=== PATIENT | female | born 1955 | race Caucasian/White ===

== ENCOUNTER 2017-03-31 10:43 | Outpatient (CLI) | payer OTHER ==
[2017-03-31 12:54] LABS: ALBUMIN/GLOBULIN RATIO 1.6 (1.0-2.2); BILIRUBIN,TOTAL 0.4 mg/dL (0.2-1.0); CALCIUM 9.6 mg/dL (8.5-10.3); POTASSIUM 4.4 mmol/L (3.5-5.0); TOTAL PROTEIN 7.1 g/dL (6.7-8.2)
== END 2017-03-31 10:44 | disposition home or self-care (01) ==
LOC: LAB.R 10:43
PROVIDERS: ATTEND Physician Assistant Medical
DX: F31.9 Bipolar disorder, unspecified (principal); Z79.899 Other long term (current) drug therapy
CPT/HCPCS: 80053; 80178

== ENCOUNTER 2018-01-06 11:10 | Outpatient (CLI) | payer OTHER ==
[2018-01-06 10:24] LABS: BASOPHILS % (AUTO) 0.4 %; EOSINOPHILS # (AUTO) 0.2 10^3/uL (0.0-0.7); EOSINOPHILS % (AUTO) 2.4 %; HGB - HEMOGLOBIN 12.7 g/dL (12.0-16.0); LYMPHOCYTES # (AUTO) 1.8 10^3/uL (1.5-3.5); LYMPHOCYTES % (AUTO) 21.4 %; MEAN CORPUSCULAR HEMOGLOBIN 33.5 pg (27.0-31.0); MEAN CORPUSCULAR HGB CONC 34.8 g/dL (32.0-36.0); MEAN CORPUSCULAR VOLUME 96.2 fL (81.0-99.0); MEAN PLATELET VOLUME 7.4 fL (7.9-10.8); MONOCYTES # (AUTO) 0.4 10^3/uL (0.0-1.0); MONOCYTES % (AUTO) 5.2 %; NEUTROPHILS % (AUTO) 70.6 %; PLT - PLATELET COUNT 254 10^3/uL (130-450); RED BLOOD COUNT 3.81 10^6/uL (4.20-5.40); RED CELL DISTRIBUTION WIDTH 12.7 % (12.0-15.0); WHITE BLOOD COUNT 8.6 x10^3/uL (4.8-10.8)
[2018-01-06 10:48] LABS: ALBUMIN 4.4 g/dL (3.2-5.5); ALBUMIN/GLOBULIN RATIO 1.8 (1.0-2.2); ALKALINE PHOSPHATASE 70 IU/L (42-121); ALT ALANINE AMINOTRANSFERASE 22 IU/L (10-60); AST ASPARTATE AMINOTRANSFERASE 25 IU/L (10-42); BILIRUBIN,TOTAL 0.5 mg/dL (0.2-1.0); BUN - BLOOD UREA NITROGEN 15 mg/dL (6-20); CALCIUM 10.2 mg/dL (8.5-10.3); CARBON DIOXIDE - CO2 25 mmol/L (21-32); CHLORIDE 104 mmol/L (101-111); CHOL/HDL RATIO 5.2 (<4.4); CHOLESTEROL 206 mg/dL; GFR - MDRD 56 (>89); GLUCOSE 118 mg/dL (70-100); HDL CHOLESTEROL 40 mg/dL; LDL CHOLESTEROL,CALCULATED 132 mg/dL; LDL/HDL RATIO 3.3 (<4.4); SODIUM 138 mmol/L (135-145); TOTAL PROTEIN 6.8 g/dL (6.7-8.2); VLDL CHOLESTEROL 34 mg/dL
[2018-01-06 10:49] LABS: HB2 TOTAL 13.4 g/dL; HEMOGLOBIN A1C 0.44 g/dL; HEMOGLOBIN A1C % 5.2 % (4.6-6.2)
[2018-01-06 11:16] LABS: LITHIUM 0.57 mmol/L
[2018-01-07 09:27] LABS: HEPATITIS C ANTIBODY NON-REACTIVE (NON-REACTIVE)
== END 2018-01-06 11:11 | disposition home or self-care (01) ==
LOC: LAB.R 11:10
PROVIDERS: ATTEND Physician Assistant Medical
DX: E11.9 Type 2 diabetes mellitus without complications (principal); I10 Essential (primary) hypertension; F31.9 Bipolar disorder, unspecified; E03.9 Hypothyroidism, unspecified; Z11.59 Encounter for screening for other viral diseases; Z72.89 Other problems related to lifestyle; Z79.899 Other long term (current) drug therapy
CPT/HCPCS: 80053; 80061; 80175; 80178; 83036; 83721; 84443; 85025; 86803

== ENCOUNTER 2018-01-28 12:44 | Outpatient (CLI) | payer OTHER ==
--- NOTE | 2018-01-29 09:41 | Mammography Report ---
DIGITAL SCREENING MAMMOGRAPHY: 01/28/2018 HISTORY: Status post bilateral reduction. COMPARISON: 12/22/2015, 12/16/2014, 09/02/2012, and 09/06/2010. TECHNIQUE: Bilateral digital CC and MLO projections. FINDINGS: There are scattered fibroglandular densities. No new suspicious clustered microcalcifications, dominant mass, skin thickening, architectural distortion, or interval change is seen. IMPRESSION: NEGATIVE - BI-RADS CATEGORY 1. SUGGEST RETURN TO ROUTINE SCREENING IN 12 MONTHS. STANDARD QUALIFYING STATEMENTS 1. This examination was reviewed with the aid of Computer-Aided Detection (CAD) . 2. A negative or benign imaging report should not delay biopsy if clinically suspicious findings are present. Consider surgical consultation if warranted. More than 5 % of cancers are not identified by imaging. 3. Dense breasts may obscure an underlying neoplasm. TD: 01/29/2018 09:40 SHAWN
== END 2018-01-28 12:45 | disposition home or self-care (01) ==
LOC: DI 12:44
PROVIDERS: ATTEND Physician Assistant Medical
DX: Z12.31 Encounter for screening mammogram for malignant neoplasm of breast (principal)
CPT/HCPCS: 77067

== ENCOUNTER 2018-02-03 08:00 | Outpatient (CLI) | payer OTHER ==
[2018-02-03 13:27] LABS: ALBUMIN 4.3 g/dL (3.2-5.5); ALBUMIN/GLOBULIN RATIO 1.7 (1.0-2.2); BILIRUBIN,TOTAL 0.5 mg/dL (0.2-1.0); CALCIUM 9.9 mg/dL (8.5-10.3); CREATININE 1.3 mg/dL (0.4-1.0); TOTAL PROTEIN 6.9 g/dL (6.7-8.2)
== END 2018-02-03 08:01 | disposition home or self-care (01) ==
LOC: LAB.R 08:00
PROVIDERS: ATTEND Physician Assistant Medical
DX: F31.9 Bipolar disorder, unspecified (principal); Z79.899 Other long term (current) drug therapy
CPT/HCPCS: 80053; 80178; 81599

== ENCOUNTER 2018-02-12 08:00 | Outpatient (CLI) | payer OTHER ==
[2018-02-12 11:08] LABS: ALBUMIN 4.4 g/dL (3.2-5.5); ALBUMIN/GLOBULIN RATIO 1.7 (1.0-2.2); BILIRUBIN,TOTAL 0.4 mg/dL (0.2-1.0); CALCIUM 9.6 mg/dL (8.5-10.3); CREATININE 1.1 mg/dL (0.4-1.0)
[2018-02-12 11:34] LABS: LITHIUM 1.03 mmol/L
== END 2018-02-12 08:01 | disposition home or self-care (01) ==
LOC: LAB.R 08:00
PROVIDERS: ATTEND Physician Assistant Medical
DX: Z79.899 Other long term (current) drug therapy (principal); F31.9 Bipolar disorder, unspecified
CPT/HCPCS: 80053; 80178

== ENCOUNTER 2018-03-13 14:39 | Outpatient (CLI) | payer OTHER ==
--- NOTE | 2018-03-13 17:01 | MRI Report ---
EXAM: LEFT SHOULDER MRI WITHOUT CONTRAST EXAM DATE: 03/13/2018 03:52 PM. CLINICAL HISTORY: Left upper arm and shoulder pain. COMPARISON: None. TECHNIQUE: Multiplanar, multisequence T1-weighted and fluid-sensitive sequences of the shoulder witho ut contrast. Other: None. FINDINGS: Acromioclavicular Region: The acromion is type II. The acromioclavicular joint is unremarkable. The c oracoacromial and coracoclavicular ligaments are intact. No subacromial/subdeltoid bursal fluid. Glenohumeral Region: No subluxation. No effusion or loose bodies. The articular cartilage is unremark able. The glenohumeral ligaments and joint capsule are unremarkable. Bone Marrow: No fracture, marrow edema or bone lesions. Labrum: The labrum is unremarkable on this nonarthrographic study. Musculature/Rotator Cuff: There is an approximately 9 x 9 mm high-grade partial thickness or full-thi ckness, partial-width tear of the supraspinatus tendon. The infraspinatus, teres minor, and subscapul sterling tendons are unremarkable. No edema or fatty atrophy. Biceps Tendon: The long head of the biceps tendon and biceps jaxon are intact. Other: The subcutaneous tissues are unremarkable. IMPRESSION: 1. A 9 x 9 mm high-grade partial thickness or full-thickness, partial-width tear of the supraspinatus tendon. [facility] MUSCULOSKELETAL RADIOLOGY SECTION Referring Provider Line: [phone] SITE ID: [id number]
== END 2018-03-13 14:40 | disposition home or self-care (01) ==
LOC: DI 14:39
PROVIDERS: ATTEND Physician Assistant Medical
DX: M25.512 Pain in left shoulder (principal); M79.622 Pain in left upper arm; S46.812A Strain of other muscles, fascia and tendons at shoulder and upper arm level, left arm, initial encounter

== ENCOUNTER 2018-04-07 08:00 | Outpatient (CLI) | payer OTHER ==
[2018-04-07 09:27] LABS: LITHIUM 1.06 mmol/L
[2018-04-07 09:30] LABS: ALBUMIN 3.9 g/dL (3.2-5.5); ALBUMIN/GLOBULIN RATIO 1.6 (1.0-2.2); BILIRUBIN,TOTAL 0.5 mg/dL (0.2-1.0); CALCIUM 9.9 mg/dL (8.5-10.3); TOTAL PROTEIN 6.3 g/dL (6.7-8.2)
[2018-04-07 09:45] LABS: HB2 TOTAL 12.9 g/dL; HEMOGLOBIN A1C 0.43 g/dL; HEMOGLOBIN A1C % 5.2 % (4.6-6.2)
== END 2018-04-07 08:01 ==
LOC: LAB.R 08:00
PROVIDERS: ATTEND Physician Assistant Medical
DX: F31.9 Bipolar disorder, unspecified (principal); Z79.899 Other long term (current) drug therapy; E11.9 Type 2 diabetes mellitus without complications
CPT/HCPCS: 80053; 80178; 83036

== ENCOUNTER 2018-04-15 13:38 | Outpatient (CLI) | payer OTHER ==
--- NOTE | 2018-04-15 14:12 | XRAY Report ---
Procedure Date: 04/15/2018 Accession Number: [id number] / [id number] Procedure: XR - Chest 2 View X-Ray CPT Code: 45664 FULL RESULT: EXAM: Chest 2 View X-Ray DATE: 04/15/2018 1:58 PM CLINICAL HISTORY: DYSPNEA/ COMPARISON: Thoracic spine 02/06/2010 TECHNIQUE: 2 views. FINDINGS: Lungs/Pleura: Left CP angle not well seen and an airspace process is not excluded. Otherwise No focal opacities evident. No pneumothorax or pleural effusion. Normal volumes. Mediastinum: Heart is mildly enlarged in size.. Other: Unremarkable bony structures for age. IMPRESSION: Mild cardiac enlargement. Cannot exclude left CP angle airspace process. Otherwise negative. [facility]
== END 2018-04-15 13:39 | disposition home or self-care (01) ==
LOC: DI 13:38
PROVIDERS: ATTEND Physician Assistant Medical
DX: R06.00 Dyspnea, unspecified (principal); I51.7 Cardiomegaly
CPT/HCPCS: 36415; 71046; 85379

== ENCOUNTER 2018-11-25 09:56 | Outpatient (CLI) | payer OTHER ==
[2018-11-25 10:16] LABS: BASOPHILS % (AUTO) 0.4 %; EOSINOPHILS # (AUTO) 0.2 10^3/uL (0.0-0.7); EOSINOPHILS % (AUTO) 2.7 %; HGB - HEMOGLOBIN 12.5 g/dL (12.0-16.0); LYMPHOCYTES % (AUTO) 24.8 %; MEAN CORPUSCULAR HEMOGLOBIN 33.6 pg (27.0-31.0); MEAN PLATELET VOLUME 7.1 fL (7.9-10.8); MONOCYTES # (AUTO) 0.6 10^3/uL (0.0-1.0); MONOCYTES % (AUTO) 7.4 %; NEUTROPHILS # (AUTO) 5.1 10^3/uL (1.5-6.6); NEUTROPHILS % (AUTO) 64.7 %; PLT - PLATELET COUNT 264 10^3/uL (130-450); RED BLOOD COUNT 3.73 10^6/uL (4.20-5.40); RED CELL DISTRIBUTION WIDTH 12.7 % (12.0-15.0); WHITE BLOOD COUNT 7.9 x10^3/uL (4.8-10.8)
[2018-11-25 10:30] LABS: HEMOGLOBIN A1C 0.44 g/dL; HEMOGLOBIN A1C % 5.2 % (4.6-6.2)
[2018-11-25 10:38] LABS: ALBUMIN 4.4 g/dL (3.2-5.5); ALBUMIN/GLOBULIN RATIO 1.8 (1.0-2.2); ALKALINE PHOSPHATASE 65 IU/L (42-121); ALT ALANINE AMINOTRANSFERASE 22 IU/L (10-60); AST ASPARTATE AMINOTRANSFERASE 24 IU/L (10-42); BILIRUBIN,TOTAL 0.4 mg/dL (0.2-1.0); BUN - BLOOD UREA NITROGEN 18 mg/dL (6-20); CALCIUM 9.8 mg/dL (8.5-10.3); CARBON DIOXIDE - CO2 25 mmol/L (21-32); CHLORIDE 103 mmol/L (101-111); CHOLESTEROL 196 mg/dL; GFR - MDRD 56 (>89); GLUCOSE 124 mg/dL (70-100); HDL CHOLESTEROL 39 mg/dL; LDL CHOLESTEROL,CALCULATED 123 mg/dL; LDL/HDL RATIO 3.2 (<4.4); SODIUM 137 mmol/L (135-145); TOTAL PROTEIN 6.9 g/dL (6.7-8.2); VLDL CHOLESTEROL 34 mg/dL
== END 2018-11-25 09:57 | disposition home or self-care (01) ==
LOC: LAB 09:56
PROVIDERS: ATTEND Physician Assistant Medical
DX: E11.9 Type 2 diabetes mellitus without complications (principal); Z79.899 Other long term (current) drug therapy; E03.9 Hypothyroidism, unspecified; F31.9 Bipolar disorder, unspecified; I10 Essential (primary) hypertension
CPT/HCPCS: 36415; 80053; 80061; 80178; 83036; 83721; 84443; 85025

== ENCOUNTER 2018-12-31 08:00 | Outpatient (CLI) | payer OTHER | END 2018-12-31 23:59 | disposition home or self-care (01) | LOC: LAB.WCP 08:00 | PROVIDERS: ATTEND Family Medicine | DX: R30.0 Dysuria (principal) | CPT/HCPCS: 81002 ==

== ENCOUNTER 2019-01-24 12:19 | Emergency (ER) | payer OTHER ==
[2019-01-24 12:32] VITALS: BP 134/100
--- NOTE | 2019-01-24 12:39 | ED Physician Documentation ---
PD HPI SKIN - Stated complaint Stated Complaint: LT FOOT PAIN - Chief complaint Chief Complaint: Wound - History obtained from History obtained from: Patient - History of Present Illness Timing - onset: How many days ago (2) Timing - duration: Days (2) Timing - details: Gradual onset, Still present Location: LLE (initially redness around corner of nail of 2nd toe after cutting nails, and the redness has progressed up toe to now the MTP area.) Quality / character: Painful, Discolored, Swelling Associated symptoms: No: Fever, N/V/D Contributing factors: Other (had cut toenails couple days prior to onset. Does not recall jamming nor striking toe.). No: Insect bite /sting, Recent illness Review of Systems Constitutional: denies: Fever, Myalgias Nose: denies: Rhinorrhea / runny nose, Congestion Throat: denies: Sore throat Respiratory: denies: Cough PD PAST MEDICAL HISTORY - Past Medical History Cardiovascular: None Respiratory: None Neuro: None Endocrine/Autoimmune: None - Present Medications Home Medications: Ambulatory Orders Medication Instructions Recorded Confirmed Doxycycline Hyclate 100 mg PO BID #14 capsule 01/24/19 Mupirocin 1 applic TP TID #15 g 01/24/19 - Allergies Allergies/Adverse Reactions: Allergies Allergy/AdvReac Type Severity Reaction Status Date / Time bupropion [From Wellbutrin] Allergy Unknown Verified 01/24/19 12:32 Sulfa (Sulfonamide Allergy Unknown Verified 01/24/19 12:32 Antibiotics) PD ED PE NORMAL - Vitals Vital signs reviewed: Yes - General General: Alert and oriented X 3, Well developed/nourished - Derm Derm: Normal color, Warm and dry - Extremities Extremities: Other (right second toe without lac nor FB seen. There is redness around to corner of the nail without fluctuance nor white area. The redness extends proximally to the dorsal MTP area.) Results - Vitals Vitals: Vital Signs - 24 hr 01/24/19 12:29 Temperature 36.5 C Heart Rate 68 Respiratory 14 Rate Blood Pressure 134/100 H O2 Saturation 98 Oxygen O2 Source Room air PD MEDICAL DECISION MAKING - ED course Complexity details: considered differential, d/w patient Departure - Departure Disposition: 01 Home, Self Care Clinical Impression: Paronychia, Cellulitis of toe of left foot Condition: Stable Record reviewed to determine appropriate education?: Yes Instructions: ED Infec Skin Cellulitis Prescriptions: Doxycycline Hyclate 100 mg PO BID #14 capsule Mupirocin 1 applic TP TID #15 g Comments: This looks like an infection around the nail bed with subsequent spread to the tissue of the toe. Treated with some warm soaks a few times a day. Use the antibiotic ointment mupirocin topically around the nailbed. Use doxycycline oral antibiotic. Tylenol or ibuprofen if needed for pains. Recheck if not improved over the next several days. Discharge Date/Time: 01/24/19 13:40
[2019-01-24] MEDS ORDERED: DOXYCYCLINE 100 MG TABLET PO STA (13:06)
[2019-01-24] MEDS ORDERED: ACETAMINOPHEN 325 MG TABLET PO STA (13:06)
[2019-01-24] MEDS ORDERED: MUPIROCIN 2% OINT 1 GM TOP STA (13:06)
== END 2019-01-24 13:40 | disposition home or self-care (01) ==
LOC: ED 12:19
DX: L03.032 Cellulitis of left toe (principal)
CPT/HCPCS: 99283; A9270

== ENCOUNTER 2019-04-09 16:50 | Emergency (ER) | payer MEDICARE, OTHER ==
[2019-04-09 17:19] VITALS: BP 149/73
[2019-04-09 17:40] LABS: BILIRUBIN,URINE NEGATIVE (NEGATIVE); GLUCOSE, URINE (UA) NEGATIVE (NEGATIVE); KETONES,URINE (UA) NEGATIVE (NEGATIVE); LEUKOCYTE ESTERASE, URINE TRACE (NEGATIVE); NITRITE,URINE NEGATIVE (NEGATIVE); OCCULT BLOOD,URINE LARGE (NEGATIVE); PROTEIN,URINE NEGATIVE (NEGATIVE); UROBILINOGEN,URINE 0.2 (NORMAL) E.U./dL (NORMAL)
[2019-04-09 17:46] LABS: CLARITY,URINE CLOUDY (CLEAR)
[2019-04-09 17:48] LABS: BACTERIA,URINE Rare /HPF (None Seen); RBC,URINE 0-5 /HPF (0-5); SQUAMOUS EPITHELIAL CELL,UR FEW Squamous (<= Few)
[2019-04-09] MEDS ORDERED: CIPROFLOXACIN 250 MG TABLET PO STA (18:27)
--- NOTE | 2019-04-09 18:28 | ED Physician Documentation ---
PD HPI FEMALE - Stated complaint Stated Complaint: FEMALE - Chief complaint Chief Complaint: UTI - History obtained from History obtained from: Patient - History of Present Illness Timing - onset: Today (Suprapubic pressure with nausea today and frequency. Seems consistent with prior episodes of UTI.) Review of Systems Constitutional: reports: Fatigue. denies: Fever, Chills GI: reports: Nausea. denies: Vomiting, Diarrhea : reports: Frequency. 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 : None HEENT: None Psych: None Musculoskeletal: None Derm: None - Past Surgical History Past Surgical History: Yes General: Cholecystectomy /PULPWOOD DEALER: section, Breast reduction, Other HEENT: Tonsil/Adenoidectomy - Present Medications Home Medications: Ambulatory Orders Medication Instructions Recorded Confirmed Doxycycline Hyclate 100 mg PO BID #14 capsule 01/24/19 Mupirocin 1 applic TP TID #15 g 01/24/19 Ciprofloxacin [Cipro] 250 mg PO Q12H #6 tablet 04/09/19 - Allergies Allergies/Adverse Reactions: Allergies Allergy/AdvReac Type Severity Reaction Status Date / Time bupropion [From Wellbutrin] Allergy Unknown Verified 01/24/19 12:32 Sulfa (Sulfonamide Allergy Unknown Verified 01/24/19 12:32 Antibiotics) - Social History Does the pt smoke?: No Smoking Status: Never smoker Does the pt drink ETOH?: Yes Does the pt have substance abuse?: No - Immunizations Immunizations are current?: Yes - POLST Patient has POLST: No PD ED PE NORMAL - Vitals Vital signs reviewed: Yes - General General: Alert and oriented X 3, No acute distress - Abdomen Abdomen: Soft, Non tender - Back Back: Other (Very mild bilateral flank tenderness) - Neuro Neuro: Alert and oriented X 3, Normal speech Results - Vitals Vitals: Vital Signs - 24 hr 04/09/19 17:15 Temperature 36.9 C Heart Rate 62 Respiratory 18 Rate Blood Pressure 149/73 H O2 Saturation 97 Oxygen O2 Source Room air - Labs Labs: Laboratory Tests 04/09/19 17:20 Urine Color YELLOW Urine Clarity CLOUDY Urine pH 6.0 Ur Specific [place] 1.020 Urine Protein NEGATIVE Urine Glucose (UA) NEGATIVE Urine Ketones NEGATIVE Urine Occult Blood LARGE H Urine Nitrite NEGATIVE Urine Bilirubin NEGATIVE Urine Urobilinogen 0.2 (NORMAL) Ur Leukocyte Esterase TRACE H Urine RBC 0-5 Urine WBC 0-3 Ur Squamous Epith Cells FEW Squamous Urine Bacteria Rare Ur Microscopic Review INDICATED Urine Culture Comments INDICATED PD MEDICAL DECISION MAKING - ED course ED course: Mostly consistent with simple cystitis but potentially some early Pyelo, did not want to give sulfa as she is allergic and did not want to use Macrobid with the potential for Pyelo. Departure - Departure Disposition: 01 Home, Self Care Clinical Impression: Cystitis Condition: Good Record reviewed to determine appropriate education?: Yes Instructions: ED UTI Cystitis Female Prescriptions: Ciprofloxacin [Cipro] 250 mg PO Q12H #6 tablet Comments: We will culture your urine, the results should be done in 48-72 hours. If an antibiotic change is necessary we will call you. Return if worse in the meantime, especially if you develop increasing flank pain, fevers, or cannot keep down the medication. Your blood pressure was elevated today on check into the emergency department. This does not mean that you have hypertension, it is a common phenomenon to come to the emergency department and have elevated blood pressure. I recommend that you see your primary care physician within the week to have it rechecked when you are feeling better.
== END 2019-04-09 18:36 | disposition home or self-care (01) ==
LOC: ED 16:50
DX: N30.90 Cystitis, unspecified without hematuria (principal); R03.0 Elevated blood-pressure reading, without diagnosis of hypertension; Z88.2 Allergy status to sulfonamides
CPT/HCPCS: 81001; 87086; 99283; A9270; 81003

== ENCOUNTER 2019-04-11 05:14 | Emergency (ER) | payer MEDICARE, OTHER ==
--- NOTE | 2019-04-11 05:20 | ED Physician Documentation ---
PD HPI FEMALE - Stated complaint Stated Complaint: FEM - History obtained from History obtained from: Patient - History of Present Illness Timing - onset: How many days ago (3-4) Timing - duration: Days Timing - details: Still present, Constant, Waxing and waning Associated symptoms: Back pain, Dysuria, Urinary frequency. No: Fever, Abdominal pain Recently seen: Emergency Dept - Additional information Additional information: c/o dysuria and frequency c/w previous UTIs. T+R from this ED 2 days ago but returns due to worsening symptoms despite taking cipro as prescribed. Review of Systems Constitutional: reports: Reviewed and negative GI: denies: Abdominal Pain : reports: Dysuria, Frequency. denies: Hematuria Musculoskeletal: reports: Back pain PD PAST MEDICAL HISTORY - Past Medical History Cardiovascular: None Respiratory: None Neuro: None Endocrine/Autoimmune: None GI: None EMT I/85: None : None HEENT: None Psych: None Musculoskeletal: None Derm: None - Past Surgical History Past Surgical History: Yes General: Cholecystectomy /EMT I/85: section, Breast reduction, Other HEENT: Tonsil/Adenoidectomy - Present Medications Home Medications: Ambulatory Orders Medication Instructions Recorded Confirmed Doxycycline Hyclate 100 mg PO BID #14 capsule 01/24/19 Mupirocin 1 applic TP TID #15 g 01/24/19 Ciprofloxacin [Cipro] 250 mg PO Q12H #6 tablet 04/09/19 Amox/Clav 875/125 [Augmentin] 1 each PO Q12H #14 tablet 04/11/19 Hydrocodone/Acetaminophen 1 - 2 each PO Q6H PRN #14 tablet 04/11/19 [Hydrocodon-Acetaminophen 5-325] Phenazopyridine HCl [Pyridium] 200 mg PO TID PRN #6 tablet 04/11/19 - Allergies Allergies/Adverse Reactions: Allergies Allergy/AdvReac Type Severity Reaction Status Date / Time bupropion [From Wellbutrin] Allergy Unknown Verified 01/24/19 12:32 Sulfa (Sulfonamide Allergy Unknown Verified 01/24/19 12:32 Antibiotics) - Social History Does the pt smoke?: No Smoking Status: Never smoker Does the pt drink ETOH?: Yes Does the pt have substance abuse?: No - Immunizations Immunizations are current?: Yes - POLST Patient has POLST: No PD ED PE NORMAL - Vitals Vital signs reviewed: Yes - General General: Alert and oriented X 3, No acute distress, Well developed/nourished - Abdomen Abdomen: Soft, Non tender - Back Back: No CVA TTP Results - Vitals Vitals: Vital Signs - 24 hr 04/11/19 05:19 Temperature 37 C Heart Rate 93 Respiratory 20 Rate Blood Pressure 193/99 H O2 Saturation 98 Oxygen O2 Source Room air - Labs Labs: Laboratory Tests 04/11/19 05:45 Urine Color YELLOW Urine Clarity CLEAR Urine pH 6.5 Ur Specific [place] <=1.005 Urine Protein NEGATIVE Urine Glucose (UA) NEGATIVE Urine Ketones NEGATIVE Urine Occult Blood NEGATIVE Urine Nitrite NEGATIVE Urine Bilirubin NEGATIVE Urine Urobilinogen 0.2 (NORMAL) Ur Leukocyte Esterase NEGATIVE Ur Microscopic Review NOT INDICATED Urine Culture Comments NOT INDICATED PD MEDICAL DECISION MAKING - ED course Complexity details: reviewed old records, reviewed results, considered differential, d/w patient Departure - Departure Disposition: 01 Home, Self Care Clinical Impression: Cystitis Condition: Good Instructions: ED UTI Cystitis Female Prescriptions: Amox/Clav 875/125 [Augmentin] 1 each PO Q12H #14 tablet Hydrocodone/Acetaminophen [Hydrocodon-Acetaminophen 5-325] 1 - 2 each PO Q6H PRN #14 tablet PRN Reason: pain Phenazopyridine HCl [Pyridium] 200 mg PO TID PRN #6 tablet PRN Reason: dysuria Discharge Date/Time: 04/11/19 06:14
[2019-04-11 05:27] VITALS: BP 193/99
[2019-04-11] MEDS ORDERED: cefTRIAXone 1 GM VIAL IM STA (05:45)
[2019-04-11] MEDS ORDERED: LIDOCAINE 1% 2 ML VIAL MC ONE (05:45)
[2019-04-11] MEDS ORDERED: PHENAZOPYRIDINE 100 MG TABLET PO STA (05:46)
[2019-04-11] MEDS ORDERED: HYDROcod/ACETAM 5/325 MG TABLET PO STA (05:46)
[2019-04-11 05:53] LABS: BILIRUBIN,URINE NEGATIVE (NEGATIVE); GLUCOSE, URINE (UA) NEGATIVE (NEGATIVE); KETONES,URINE (UA) NEGATIVE (NEGATIVE); LEUKOCYTE ESTERASE, URINE NEGATIVE (NEGATIVE); NITRITE,URINE NEGATIVE (NEGATIVE); OCCULT BLOOD,URINE NEGATIVE (NEGATIVE); PH,URINE 6.5 PH (5.0-7.5); PROTEIN,URINE NEGATIVE (NEGATIVE); UROBILINOGEN,URINE 0.2 (NORMAL) E.U./dL (NORMAL)
[2019-04-11 05:55] LABS: CLARITY,URINE CLEAR (CLEAR)
== END 2019-04-11 06:14 | disposition home or self-care (01) ==
LOC: ED 05:14
DX: N30.90 Cystitis, unspecified without hematuria (principal)
CPT/HCPCS: 81003; 96372; 99283; A9270; 81001; 87086

== ENCOUNTER 2019-05-10 15:21 | Outpatient (CLI) | payer MEDICARE ==
--- NOTE | 2019-05-11 08:28 | Mammography Report ---
Reason: MAMMOGRAPHIC SCREENING FOR BREAST CANCER Procedure Date: 05/10/2019 Accession Number: [id number] / [id number] Procedure: GAEL - Screening Mammo w/Kyle CPT Code: FULL RESULT: EXAM: Screening Mammo w/Kyle DATE: 05/10/2019 3:53 PM CLINICAL HISTORY: Screening encounter. History of bilateral breast reduction. TECHNIQUE: (B) - Bilateral CC and MLO views were obtained. A cleavage view was obtained. COMPARISON: 01/28/2018 through 09/02/2012. PARENCHYMAL PATTERN: (A) - The breast(s) demonstrate(s) scattered fibroglandular densities. FINDINGS: Postreduction appearance of both breasts is essentially unchanged, typically benign. There are no suspicious masses, calcifications, or areas of distortion. IMPRESSION: Benign findings. BI-RADS category 2. RECOMMENDATION: (ANNUAL) - Recommend routine annual screening mammography. BI-RADS CATEGORY: (2) - Benign Findings. STANDARD QUALIFYING STATEMENTS: 1. This examination was not reviewed with the aid of Computer-Aided Detection (CAD). 2. A negative or benign imaging report should not preclude biopsy if clinically suspicious findings are present. 3. Dense breasts may obscure an underlying neoplasm. 4. This examination was reviewed with the aid of 3D breast imaging (tomosynthesis).
== END 2019-05-10 15:22 | disposition home or self-care (01) ==
LOC: DI 15:21
PROVIDERS: ATTEND Nurse Practitioner
DX: Z12.31 Encounter for screening mammogram for malignant neoplasm of breast (principal)
CPT/HCPCS: 77063; 77067

== ENCOUNTER 2019-08-04 12:16 | Outpatient (CLI) | payer MEDICARE ==
[2019-08-04] MEDS ORDERED: GADOPENTETATE DIMEGLUMINE 5 ML VIAL IVP ONE (12:31)
[2019-08-04] MEDS ORDERED: IOTHALAMATE MEGLUMINE 50 ML VIAL ONE (12:31)
[2019-08-04] MEDS ORDERED: BUFFERED LIDOCAINE 10 ML SYRINGE ONE (12:31)
--- NOTE | 2019-08-04 16:00 | MRI Report ---
Reason: STRAIN OF MUSCLE, FASCIA AND TENDON AT SHOULDER Procedure Date: 08/04/2019 Accession Number: [id number] / [id number] Procedure: MRI - Arthrogram Shoulder RT CPT Code: FULL RESULT: EXAM: RIGHT SHOULDER MRI ARTHROGRAM WITH CONTRAST EXAM DATE: 08/04/2019 02:20 PM. CLINICAL HISTORY: Strain of muscle, fascia and tendon at shoulder. COMPARISON: None. TECHNIQUE: Multiplanar, multisequence T1-weighted and fluid-sensitive sequences of the shoulder after an arthrographic injection of dilute gadolinium, dictated under a separate exam. Other: None. FINDINGS: Acromioclavicular Region: The acromion is type II unipartite. AC joint shows mild osteoarthritic change with some slight synovial hypertrophic change in joint space narrowing. The coracoacromial and coracoclavicular ligaments are intact. There is no contrast or fluid in the subacromial/subdeltoid bursa. Glenohumeral Region: No subluxation. No loose bodies. The articular cartilage is unremarkable. The glenohumeral ligaments and joint capsule are unremarkable. Bone Marrow: No fracture, marrow edema or bone lesions. Labrum: The labrum is unremarkable. Biceps Tendon: The long head of the biceps tendon and biceps jaxon are intact. Musculature/Rotator Cuff: Undersurface of the distal supraspinatus shows some thinning and what appears to be a small focal undersurface tear with loss of about 50% of tendon thickness. Series 801 image 17, series 601 image 10. Remainder of the rotator cuff appears intact. There is a small amount of increased T2 signal in the subscapularis which is thought to be secondary to artifact of injection. No proximal muscle bundle edema or fatty atrophy. Other: The subcutaneous tissues are unremarkable. IMPRESSION: 1. Type II unipartite undersurface osseous acromion shape. AC joint shows mild osteoarthritic change with some synovial hypertrophic change and joint space narrowing. 2. Labrum, capsular structures and long head of biceps appear normal. 3. Undersurface partial-thickness tear involving the distal supraspinatus measures about 5 mm, somewhat small involving about 50% of the tendon thickness. [facility]
--- NOTE | 2019-08-04 16:00 | XRAY Report ---
Reason: STRAIN OF MUSCLE, FASCIA AND TENDON AT SHOULDER Procedure Date: 08/04/2019 Accession Number: [id number] / [id number] Procedure: FL - Arthrogram Needle Placement CPT Code: FULL RESULT: EXAM: RIGHT SHOULDER ARTHROGRAPHIC INJECTION WITH FLUOROSCOPIC GUIDANCE EXAM DATE: 08/04/2019 12:52 PM. CLINICAL HISTORY: Strain of muscle, fascia and tendon at shoulder. COMPARISON: None. TECHNIQUE: The risks, benefits, and alternatives of the procedure were discussed with the patient. All questions were answered. Written and verbal consent were obtained. The glenohumeral joint was marked under fluoroscopy and prepped and draped in a sterile manner. Local anesthesia was performed with 1% lidocaine. A 22-gauge needle was then inserted into the glenohumeral joint. 10 mL of a solution containing 25% 1% lidocaine, 25% iodinated contrast, and a 1:200 dilution of gadolinium contrast in sterile saline was then injected. The needle was removed without immediate complication. Other: None. Fluoroscopy Time: 1 minute. Number of Images: 1. FINDINGS: Bones and joints: No fracture or subluxation. Injection: Fluoroscopic images demonstrate needle placement and contrast in the glenohumeral joint. No contrast extravasation outside of the glenohumeral joint. IMPRESSION: Successful fluoroscopically guided arthrographic injection of the shoulder. [facility]
[2019-08-05] MEDS ORDERED: IOTHALAMATE MEGLUMINE 50 ML VIAL IVP ONE (10:36)
[2019-08-05] MEDS ORDERED: BUFFERED LIDOCAINE 10 ML SYRINGE IU ONE (10:40)
[2019-08-05] MEDS ORDERED: GADOPENTETATE DIMEGLUMINE 5 ML VIAL IVP ONE (10:40)
== END 2019-08-04 12:17 | disposition home or self-care (01) ==
LOC: DI 12:16
PROVIDERS: ATTEND Nurse Practitioner
DX: S46.911A Strain of unspecified muscle, fascia and tendon at shoulder and upper arm level, right arm, initial encounter (principal); M75.101 Unspecified rotator cuff tear or rupture of right shoulder, not specified as traumatic; M19.011 Primary osteoarthritis, right shoulder
CPT/HCPCS: 23350; 73222; 77002; Q9961

== ENCOUNTER 2019-09-30 10:58 | Outpatient (CLI) | payer MEDICARE ==
[2019-09-30 11:15] LABS: BASOPHILS % (AUTO) 0.4 %; EOSINOPHILS # (AUTO) 0.2 10^3/uL (0.0-0.7); EOSINOPHILS % (AUTO) 1.9 %; HGB - HEMOGLOBIN 13.2 g/dL (12.0-16.0); LYMPHOCYTES # (AUTO) 1.9 10^3/uL (1.5-3.5); LYMPHOCYTES % (AUTO) 18.7 %; MEAN CORPUSCULAR HEMOGLOBIN 32.9 pg (27.0-31.0); MEAN CORPUSCULAR HGB CONC 32.9 g/dL (32.0-36.0); MONOCYTES # (AUTO) 0.7 10^3/uL (0.0-1.0); MONOCYTES % (AUTO) 6.7 %; NEUTROPHILS # (AUTO) 7.2 10^3/uL (1.5-6.6); NEUTROPHILS % (AUTO) 71.8 %; PLT - PLATELET COUNT 307 10^3/uL (130-450); RED BLOOD COUNT 4.01 10^6/uL (4.20-5.40); RED CELL DISTRIBUTION WIDTH 12.3 % (12.0-15.0); WHITE BLOOD COUNT 10.1 x10^3/uL (4.8-10.8)
[2019-09-30 11:30] LABS: ALBUMIN 4.6 g/dL (3.2-5.5); ALBUMIN/GLOBULIN RATIO 1.5 (1.0-2.2); BILIRUBIN,TOTAL 0.8 mg/dL (0.2-1.0); CALCIUM 10.5 mg/dL (8.5-10.3); CREATININE 1.1 mg/dL (0.4-1.0); TOTAL PROTEIN 7.6 g/dL (6.7-8.2)
[2019-09-30 11:42] LABS: LITHIUM 1.09 mmol/L
[2019-09-30 12:02] LABS: THYROID STIMULATING HORMONE 0.73 uIU/mL (0.34-5.60)
[2019-09-30 12:03] LABS: FREE T4 (FREE THYROXINE) 0.96 ng/dL (0.58-1.64)
[2019-09-30 16:35] LABS: HB2 TOTAL 13.5 g/dL; HEMOGLOBIN A1C 0.53 g/dL; HEMOGLOBIN A1C % 5.7 % (4.6-6.2)
--- NOTE | 2019-10-01 10:42 | XRAY Report ---
Reason: ORTHOPNEA Procedure Date: 09/30/2019 Accession Number: [id number] / [id number] Procedure: XR - Chest 2 View X-Ray CPT Code: 95725 Final Report FULL RESULT: EXAM: CHEST RADIOGRAPHY, 2 VIEWS EXAM DATE: 09/30/2019 11:24 AM. CLINICAL HISTORY: Orthopnea with SOA increasing over the past couple of months. COMPARISON: CHEST 2 VIEW 04/15/2018 1:47 PM. TECHNIQUE: Upright PA and lateral views. FINDINGS: Lungs/Pleura: No focal opacities evident. No pleural effusion. No pneumothorax. Mildly suboptimal inspiratory effort.. Mediastinum: Question of mild cardiomegaly, as previously, without pulmonary vascular congestion or adenopathy. Other: Trachea is midline. Osseous structures are unremarkable for age. IMPRESSION: Mildly suboptimal inspiratory effort, likely secondary to body habitus. Upper normal to slightly enlarged heart size, as previously, without CHF, pneumonia or other demonstrated cause for the patient's symptoms. [facility]
== END 2019-09-30 10:59 | disposition home or self-care (01) ==
LOC: LAB 10:58 → DI 10:59
PROVIDERS: ATTEND Family Medicine
DX: R06.01 Orthopnea (principal); I51.7 Cardiomegaly; G25.1 Drug-induced tremor; E03.9 Hypothyroidism, unspecified; I10 Essential (primary) hypertension; E11.65 Type 2 diabetes mellitus with hyperglycemia; G47.33 Obstructive sleep apnea (adult) (pediatric); F31.9 Bipolar disorder, unspecified; Z79.899 Other long term (current) drug therapy
CPT/HCPCS: 36415; 71046; 80053; 80175; 80178; 83036; 84439; 84443; 84481; 85025

== ENCOUNTER 2019-10-07 10:13 | Outpatient (CLI) | payer MEDICARE | END 2019-10-07 10:14 | disposition home or self-care (01) | LOC: DI 10:13 | PROVIDERS: ATTEND Family Medicine | DX: R06.01 Orthopnea (principal); I51.7 Cardiomegaly | CPT/HCPCS: 93306 ==

== ENCOUNTER 2020-05-04 09:30 | Outpatient (CLI) | payer MEDICARE | END 2020-05-04 23:59 | disposition home or self-care (01) | LOC: LAB.R 09:30 | PROVIDERS: ATTEND Nurse Practitioner Family | DX: N39.0 Urinary tract infection, site not specified (principal) | CPT/HCPCS: 87086 ==

== ENCOUNTER 2020-07-21 11:03 | Outpatient (CLI) | payer MEDICARE ==
[2020-07-21 11:39] LABS: BILIRUBIN,TOTAL 0.6 mg/dL (0.2-1.0); CALCIUM 10.2 mg/dL (8.5-10.3); CREATININE 1.1 mg/dL (0.4-1.0)
[2020-07-21 11:40] LABS: ALBUMIN 4.4 g/dL (3.2-5.5); ALBUMIN/GLOBULIN RATIO 1.7 (1.0-2.2)
[2020-07-21 12:04] LABS: LITHIUM 0.96 mmol/L
[2020-07-21 12:07] LABS: HEMOGLOBIN A1c% 5.1 % (4.27-6.07)
== END 2020-07-21 11:04 | disposition home or self-care (01) ==
LOC: LAB 11:03
PROVIDERS: ATTEND Nurse Practitioner
DX: F31.9 Bipolar disorder, unspecified (principal); E11.9 Type 2 diabetes mellitus without complications
CPT/HCPCS: 36415; 80053; 80178; 83036

== ENCOUNTER 2020-10-09 13:46 | Outpatient (CLI) | payer MEDICARE | END 2020-10-09 13:47 | disposition EMS.NT | LOC: EMS 13:46 | PROVIDERS: ATTEND Surgery | DX: Z04.1 Encounter for examination and observation following transport accident (principal) ==

== ENCOUNTER 2020-11-18 08:00 | Outpatient (CLI) | payer MEDICARE | END 2020-11-18 23:59 | disposition home or self-care (01) | LOC: LAB.R 08:00 | PROVIDERS: ATTEND Family Medicine | DX: R30.9 Painful micturition, unspecified (principal) | CPT/HCPCS: 87086 ==

== ENCOUNTER 2020-12-26 12:58 | Outpatient (CLI) | payer MEDICARE, OTHER ==
--- NOTE | 2020-12-27 10:06 | Mammography Report ---
BILATERAL DIGITAL SCREENING MAMMOGRAM 3D/2D: 12/26/2020 CLINICAL: Routine screening. Comparison is made to exams dated: 05/10/2019 mammogram, 01/28/2018 mammogram, 12/22/2015 mammogram, 11/28 mammogram, 09/02/2012 mammogram, and 09/06/2010 mammogram - [facility]. The tissue of both breasts is predominantly fatty. No significant masses, calcifications, or other findings are seen in either breast. There has been no significant interval change. IMPRESSION: NEGATIVE There is no mammographic evidence of malignancy. A 1 year screening mammogram is recommended. This exam was interpreted at Station ID: [id number]. NOTE: For mammograms, a report in lay terms will be sent to the patient. Approximately 15% of breast malignancies will not be visualized mammographically. In the management of a palpable breast mass, a negative mammogram must not discourage biopsy of a clinically suspicious lesion. Electronically Signed By: Vince Mock acr/penrad:12/26/2020 15:28:48 ACR BI-RADS Category 1: Negative 3341F PARENCHYMAL PATTERN: (F) - The breast(s) demonstrate(s) diffuse fatty replacement. BI-RADS CATEGORY: (1) - 1 RECOMMENDATION: (ANNUAL) - Recommend routine annual screening mammography. [id number] 1 year screening LATERALITY: (B)
== END 2020-12-26 12:59 | disposition home or self-care (01) ==
LOC: DI 12:58
PROVIDERS: ATTEND Nurse Practitioner
DX: Z12.31 Encounter for screening mammogram for malignant neoplasm of breast (principal)

== ENCOUNTER 2020-12-26 13:00 | Outpatient (CLI) | payer MEDICARE, OTHER ==
--- NOTE | 2020-12-26 17:37 | DEXA Report ---
PROCEDURE: Dexa Spine and/or Hip INDICATIONS: POST MENOPAUSAL TECHNIQUE: Dual energy x-ray absorptiometry (DXA) was performed on a legalPAD System. Regions measur ed are the AP Spine, femoral neck, and if needed forearm. COMPARISON: None. FINDINGS: Lumbar Spine: Bone Mineral Density 1.445 g/cm/cm,T score 2.2, normal Left Hip: Bone Mineral Density 1.066 g/cm/cm,T score 0.5, normal Left Femoral Neck: Bone Mineral Density 0.956 g/cm/cm, T score -0.6, normal (T score greater or equal to -1.0: NORMAL) (T score from -1.1 to -2.4: OSTEOPENIA) (T score less than or equal to -2.5 to: OSTEOPOROSIS) Impression: Normal bone density. Patients with diagnosis of osteoporosis or osteopenia should have regular bone mineral density assess ment. For those eligible for Medicare, routine testing is allowed once every 2 years. Testing frequ ency can be increased for patients who have rapidly progressing disease or for those who are receivin g medical therapy to restore bone mass. Reviewed by: Jeimy Hernandez MD on 12/26/2020 5:35 PM PST Approved by: Jeimy Hernandez MD on 12/26/2020 5:35 PM PST Station ID: [id number]
== END 2020-12-26 13:01 | disposition home or self-care (01) ==
LOC: DI 13:00
PROVIDERS: ATTEND Nurse Practitioner
DX: Z78.0 Asymptomatic menopausal state (principal)

== ENCOUNTER 2021-05-04 09:57 | Outpatient (CLI) | payer MEDICARE ==
[2021-05-04 10:18] LABS: BASOPHILS % (AUTO) 0.4 %; EOSINOPHILS # (AUTO) 0.2 10^3/uL (0.0-0.7); EOSINOPHILS % (AUTO) 2.7 %; HCT - HEMATOCRIT 40.7 % (37.0-47.0); HGB - HEMOGLOBIN 13.6 g/dL (12.0-16.0); LYMPHOCYTES % (AUTO) 24.1 %; MEAN CORPUSCULAR HEMOGLOBIN 33.4 pg (27.0-31.0); MEAN CORPUSCULAR HGB CONC 33.4 g/dL (32.0-36.0); MEAN PLATELET VOLUME 9.9 fL (7.9-10.8); MONOCYTES # (AUTO) 0.5 10^3/uL (0.0-1.0); MONOCYTES % (AUTO) 6.3 %; NEUTROPHILS # (AUTO) 5.4 10^3/uL (1.5-6.6); NEUTROPHILS % (AUTO) 66.3 %; PLT - PLATELET COUNT 296 10^3/uL (130-450); RED BLOOD COUNT 4.07 10^6/uL (4.20-5.40); RED CELL DISTRIBUTION WIDTH 12.2 % (12.0-15.0); WHITE BLOOD COUNT 8.1 x10^3/uL (4.8-10.8)
[2021-05-04 10:41] LABS: ALBUMIN 4.6 g/dL (3.2-5.5); ALBUMIN/GLOBULIN RATIO 1.8 (1.0-2.2); ALKALINE PHOSPHATASE 71 IU/L (42-121); ALT ALANINE AMINOTRANSFERASE 16 IU/L (10-60); AST ASPARTATE AMINOTRANSFERASE 21 IU/L (10-42); BILIRUBIN,TOTAL 0.6 mg/dL (0.2-1.0); BUN - BLOOD UREA NITROGEN 21 mg/dL (6-20); CARBON DIOXIDE - CO2 28 mmol/L (21-32); CHLORIDE 104 mmol/L (101-111); CHOL/HDL RATIO 5.5 (<4.4); CHOLESTEROL 216 mg/dL; GFR - MDRD 55 (>89); GLUCOSE 147 mg/dL (70-100); HDL CHOLESTEROL 39 mg/dL; LDL CHOLESTEROL,CALCULATED 133 mg/dL; LDL/HDL RATIO 3.4 (<4.4); POTASSIUM 4.3 mmol/L (3.5-5.0); SODIUM 140 mmol/L (135-145); TOTAL PROTEIN 7.1 g/dL (6.7-8.2); TRIGLYCERIDES 222 mg/dL; VLDL CHOLESTEROL 44 mg/dL
[2021-05-04 10:48] LABS: THYROID STIMULATING HORMONE 0.98 uIU/mL (0.34-5.60)
[2021-05-04 11:59] LABS: ESTIMATED AVERAGE GLUCOSE 108 mg/dL (70-100); HEMOGLOBIN A1c% 5.4 % (4.27-6.07)
== END 2021-05-04 09:58 | disposition home or self-care (01) ==
LOC: LAB 09:57
PROVIDERS: ATTEND Family Medicine
DX: I10 Essential (primary) hypertension (principal); Z79.899 Other long term (current) drug therapy
CPT/HCPCS: 36415; 80053; 80061; 83036; 83721; 84443; 85025

== ENCOUNTER 2021-09-04 13:12 | Outpatient (CLI) | payer MEDICARE ==
[2021-09-04 14:05] VITALS: BP 139/84
--- NOTE | 2021-09-04 14:05 | SLEEP CARE CONSULTATION ---
Information from patient questionnaire entered by Liudmila Read MA. I have reviewed and concur with the information entered by Liudmila Read MA. This document represents the service I personally performed and the decisions made by , Cassandra Mak ARNP. History of Present Illness Service Date and Time: 09/04/2021 1312 Reason for Visit: New patient Chief Complaint: reports: Other (update supplies for CPAP) Date of Onset: 20 years Usual bedtime: 11 pm Time it takes to fall asleep: 15 minutes Snores at night: Yes Observed to quit breathing while asleep: Yes Number of times waking at night: 1 - 2 Reasons for waking at night: reports: Choking, Gasping for air Toss, Turn, or Twitch while sleeping: No Recalls having dreams: No Usually gets out of bed at: 0800 Feels refreshed in the morning: No Morning headache: Yes Sleepy or fatigued during the day: Yes Ever fallen asleep while driving: Yes Takes day naps: Yes Dreams during day naps: No Prior sleep studies: Yes Year and Where: 2 [facility] 1 [place] 1 [place] Additional HPI information: GILDA OZUNA was previously diagnosed to have extremely severe, AHI 102, obstructive sleep apnea-hypopnea syndrome and comes in today to re-establish care for CPAP therapy. - Parasomnia Symptoms Ever been unable to move upon waking from sleep: No Walks in sleep: No Talks in sleep: No Ever acted out dreams in sleep: No Ever felt weak in the knees when startled or emotional: No Bothered by creepy, crawly, restless sensations in legs: No Problems with memory or concentration: No CPAP Compliance Data - Data Reviewed with Patient Average duration of nightly device use: 5 hours 57 minutes Compliance rate %: 11 (95 days) Current pressure setting (cmH2O): 9-15 Average residual AHI: 3.5 Central apnea: 0.0 Obstructive apnea: 3.0 Compliance data discussion: She has been using [employer] but had lot of difficulties getting help with her machine. She states she was having problems with the pressure not going up occasionally. She did some adjustments on her own which helped some but it still happens. She has been using it on and off but she is still having issues with the pressure which makes it hard to use. Subjective Missed days of use due to: reports: other (pressure issues on device not working properly) Patient concerns: denies: aerophagia, mask discomfort, air blowing in eyes, mask leak noise, condensation in mask/hose, nasal congestion, dry mouth, nose, throat, epistaxis, other Observed to snore while using device: No Current pressure setting perceived as: comfortable On therapy, patient: reports: sleeping better, awakening more refreshed, being more awake and alert during the day, more rested overall. 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 Patient is and lives in [place]. Have you smoked in the past 12 months: No Cigarettes per day (20/pack): 10 Years of smokin Smoking Pack Years: 1.5 Alcohol use: Yes Alcohol amount and frequency: 1 x night, socially, not very often Caffeine use: Yes Caffeine amount and frequency: 1 x daily, 2-3 times a week Family History Family history of sleep disordered breathing: No Allergies and Home Medications Drug allergies reviewed: Yes (bupriopion, Sulfa) Home medication list reviewed: Yes Allergy and home medication list: [place] Lamitrogine Cymbalta Seroquel Levothyroxine Lisinopril Metformin Review of Systems Cardiovascular: reports: high blood pressure Neurological: reports: headaches Psychiatric: reports: mood disorder Physical Exam Vital signs obtained and entered by: Roro ROBERSON Blood Pressure: 139/84 (Left) Cuff size: wrist Heart Rate: 71 O2 Saturation: 97 (with Mask) Height: 5 ft 3 in Weight: 240 lb (without bots) Body Mass Index: 42.5 BMI Classification: Morbidly Obese Impression and Plan 1. Obstructive Sleep Apnea-Hypopnea Syndrome, extremely severe, with poor treat ment compliance and good apnea control. On CPAP therapy, the patient has better sleep quality and is more rested overall. Patient has been having issues with her pressure not changing on her machine, making it hard to use because she is not getting enough pressure. She has tried to have this checked by the DME company but has got a run around on getting this done. Patient has changed insurance and her current DME does not take this new insurance. I will have my graphics coordinator inform of DME options. A DWO prescription will then be made. I will also have her machine serviced to check for malfunction of the pressure and also the bluetooth/modem on the device is not communicating. Patient advised to contact this office if further supply problems. Patient's apnea severity and rationale for treatment to reduce apnea, improve sleep quality and reduce cardiovascular and cerebrovascular events was reviewed. I also reviewed the benefit of consistent device use of CPAP for hypertension, ce rebrovascular disease and Bipolar. * Continue auto CPAP pressure at 9-15 cmH2O * Transfer DME * Machine service to check for malfunctioning pressure * Notify me if snoring with mask or feeling that the pressure is too much or too little * Attempt to lose weight * Call this office if any problems using CPAP * Return for follow up in 1-2 months, or sooner if concerns arise Counseling Topics: Spare mask, Weight loss health impact Visit Type: In Office Time Spent with Patient (minutes): 35 Provider Statement: I spent 100% of the Face to Face Visit with the patient with greater than 50% spent counseling the patient and coordination of care.
== END 2021-09-04 13:13 | disposition home or self-care (01) ==
LOC: SC 13:12
PROVIDERS: ATTEND Nurse Practitioner Family
DX: G47.33 Obstructive sleep apnea (adult) (pediatric) (principal); E66.01 Morbid (severe) obesity due to excess calories; Z68.41 Body mass index [BMI] 40.0-44.9, adult; Z87.891 Personal history of nicotine dependence
CPT/HCPCS: 99203; G0463; 99212

== ENCOUNTER 2021-11-06 09:40 | Outpatient (CLI) | payer MEDICARE ==
[2021-11-06 10:29] LABS: ALBUMIN 4.3 g/dL (3.2-5.5); ALBUMIN/GLOBULIN RATIO 1.5 (1.0-2.2); ALKALINE PHOSPHATASE 64 IU/L (42-121); ALT ALANINE AMINOTRANSFERASE 17 IU/L (10-60); AST ASPARTATE AMINOTRANSFERASE 21 IU/L (10-42); BILIRUBIN,TOTAL 0.7 mg/dL (0.2-1.0); BUN - BLOOD UREA NITROGEN 24 mg/dL (6-20); CALCIUM 10.4 mg/dL (8.5-10.3); CARBON DIOXIDE - CO2 27 mmol/L (21-32); CHLORIDE 104 mmol/L (101-111); CHOL/HDL RATIO 5.7 (<4.4); CHOLESTEROL 221 mg/dL; CREATININE 1.1 mg/dL (0.4-1.0); GFR - MDRD 50 (>89); GLUCOSE 139 mg/dL (70-100); HDL CHOLESTEROL 39 mg/dL; LDL CHOLESTEROL,CALCULATED 146 mg/dL; LDL/HDL RATIO 3.7 (<4.4); POTASSIUM 4.3 mmol/L (3.5-5.0); SODIUM 138 mmol/L (135-145); TOTAL PROTEIN 7.1 g/dL (6.7-8.2); TRIGLYCERIDES 178 mg/dL; VLDL CHOLESTEROL 36 mg/dL
[2021-11-06 10:53] LABS: LITHIUM 1.29 mmol/L
== END 2021-11-06 09:41 | disposition home or self-care (01) ==
LOC: LAB 09:40
PROVIDERS: ATTEND Family Medicine
DX: Z79.899 Other long term (current) drug therapy (principal); E78.5 Hyperlipidemia, unspecified
CPT/HCPCS: 36415; 80053; 80061; 80178; 83721

== ENCOUNTER 2022-02-01 10:20 | Outpatient (CLI) | payer MEDICARE ==
[2022-02-01 11:08] VITALS: BP 125/70
--- NOTE | 2022-02-01 11:08 | SLEEP CARE CONSULTATION ---
Information from patient questionnaire entered by Liudmila Read MA. I have reviewed and concur with the information entered by Liudmila Read MA. This document represents the service I personally performed and the decisions made by , Cassandra Mak ARNP. History of Present Illness Service Date and Time: 02/01/2022 1020 Previous diagnosis: Extremely Severe, Obstructive Sleep Apnea-Hypopnea Syndrome AHI: 102 (in 2008) Reason for follow up: first compliance (12/28/21 set up, nayely 2), first compliance after device update Equipment type: CPAP Equipment obtained from: [employer] (getting supplies) Mask style: Nasal Mask brand: Respironics Backup mask available: No (will keep old mask when replaced) Last cushion change: 1 month Prior sleep studies: Yes Year and Where: 2 [place] 1 [place] 1 [place] HPI additional information: GILDA OZUNA was diagnosed to have extremely severe, AHI 102, obstructive sleep apnea-hypopnea syndrome and returned today for CPAP therapy first compliance after updating device follow-up. Sleep Study - Results Prior sleep studies: Yes Year and Where: 2 [place] 1 [place] 1 [place] CPAP Compliance Data - Data Reviewed with Patient Average duration of nightly device use: 7 hours Compliance rate %: 90 (/30 days use) Current pressure setting (cmH2O): 4-15 (mean 9.0, avg 10.0) Average residual AHI: 3.0 Central apnea: 0.3 Average large leak: 0 Subjective Missed days of use due to: reports: travel Patient concerns: reports: air blowing in eyes, mask leak noise, other (HEADACHE; better in last 3 days with pillow adjustment). denies: aerophagia, mask discomfort, condensation in mask/hose, nasal congestion, dry mouth, nose, throat, epistaxis Observed to snore while using device: No Current pressure setting perceived as: comfortable On therapy, patient: reports: sleeping better, awakening more refreshed, being more awake and alert during the day, more rested overall. denies: drowsiness while driving Initial [place] Sleepiness Scale score: 15 (2020) Current [place] Sleepiness Scale score: 14 (01/2022) Allergies and Home Medications Home medication list reviewed: Yes (no changes) Allergy and home medication list: Allergies bupropion [From Wellbutrin] Allergy (Verified 01/24/19 12:32) Unknown Sulfa (Sulfonamide Antibiotics) Allergy (Verified 01/24/19 12:32) Unknown Review of Systems Review of systems same as previous: Yes (no changes) Physical Exam Vital signs obtained and entered by: EB ORLANDO Blood Pressure: 125/70 (PULSE 68, RIGHT, RESP 16,) Cuff size: wrist Heart Rate: 68 O2 Saturation: 99 (N94) Height: 5 ft 3 in Weight: 250 lb Body Mass Index: 44.2 BMI Classification: Morbidly Obese Impression and Plan 1. Obstructive Sleep Apnea-Hypopnea Syndrome, extremely severe, with good treatment compliance and good apnea control. On CPAP therapy, the patient has better sleep quality and is more rested overall. She has been having headaches since she started with new device. In the last 3 nights she adjusted her pillows and has not woken up with headaches. I am not sure if it is related to CPAP but we can adjust her pressures to try to accommodate. The patients pressure will be changed to autoCPAP 8-11 cmH20. Patient advised to contact me if pressure change is uncomfortable so that it can be adjusted. Goals for apnea control discussed. Patient's apnea severity and rationale for treatment to reduce apnea, improve sleep quality and reduce cardiovascular and cerebrovascular events was reviewed. I also reviewed the benefit of consistent device use of CPAP for hypertension, cerebrovascular disease, insulin resistance, depression, anxiety and mood disorder (Bipolar). 2. Obesity, unspecified. Currently patients BMI is 44.2. Obesity increases the risk of apnea, CPAP pressure requirements and overall health risks especially cardiovascular and diabetes. Thus patient is advised to[ continue to try to] lose weight. Weight loss can be done with reducing portion size, reducing refined foods and balancing content with vegetables, fruit and whole grain foods. * Change auto CPAP pressure to 8-11 cmH2O * Notify me if snoring with mask or feeling that the pressure is too much or too little * Attempt to lose weight * Call this office if any problems using CPAP * Return for follow up in 1 year, or sooner if concerns arise Counseling Topics: Spare mask, Weight loss health impact Visit Type: In Office Time Spent with Patient (minutes): 25 Provider Statement: I spent 100% of the Face to Face Visit with the patient with greater than 50% spent counseling the patient and coordination of care.
== END 2022-02-01 10:21 | disposition home or self-care (01) ==
LOC: SC 10:20
PROVIDERS: ATTEND Nurse Practitioner Family
DX: G47.33 Obstructive sleep apnea (adult) (pediatric) (principal); E66.01 Morbid (severe) obesity due to excess calories; Z68.41 Body mass index [BMI] 40.0-44.9, adult
CPT/HCPCS: 99213; G0463; 99212

== ENCOUNTER 2022-04-19 08:50 | Outpatient (CLI) | payer MEDICARE ==
--- NOTE | 2022-04-19 11:38 | XRAY Report ---
PROCEDURE: Knee 2 View BILAT INDICATIONS: KNEE PAIN, BILATERAL TECHNIQUE: 2 views of the right and left knee(s) were acquired. COMPARISON: None. FINDINGS: Bones: No fractures or dislocations. No suspicious bony lesions. Mild tricompartmental osteoarthrit ic degenerative changes noted in the knees bilaterally. Soft tissues: No joint effusion. No suspicious soft tissue calcifications. IMPRESSION: Mild bilateral knee tricompartmental osteoarthritis. Reviewed by: Selena Estrada MD, PhD on 04/19/2022 11:37 AM PDT Approved by: Selena Estrada MD, PhD on 04/19/2022 11:37 AM PDT Station ID: [id number]
--- NOTE | 2022-04-19 11:39 | XRAY Report ---
PROCEDURE: Tib/Fib BILAT INDICATIONS: LEG PAIN,BILATERAL TECHNIQUE: 2 views of the right and left tibia and fibula were acquired. COMPARISON: None FINDINGS: Bones: No fractures or dislocations. No suspicious bony lesions. Soft tissues: No suspicious soft tissue calcifications or masses. IMPRESSION: No fracture. No acute osseous lesion. If symptoms and/or clinical concern for pathology persists, fur ther assessment with repeat plain film radiographs (7-10 days) or advanced imaging (CT, MR, bone scan ) should be considered. Reviewed by: Selena Estrada MD, PhD on 04/19/2022 11:38 AM PDT Approved by: Selena Estrada MD, PhD on 04/19/2022 11:38 AM PDT Station ID: [id number]
== END 2022-04-19 08:51 | disposition home or self-care (01) ==
LOC: DI 08:50
PROVIDERS: ATTEND Family Medicine
DX: M79.605 Pain in left leg (principal); M79.604 Pain in right leg; M17.0 Bilateral primary osteoarthritis of knee

== ENCOUNTER 2022-07-29 13:09 | Outpatient (CLI) | payer MEDICARE ==
--- NOTE | 2022-07-30 11:50 | Mammography Report ---
BILATERAL DIGITAL SCREENING MAMMOGRAM 3D/2D: 07/29/2022 CLINICAL: Routine screening. Comparison is made to exams dated: 12/26/2020 mammogram, 05/10/2019 mammogram, and 01/28/2018 mammogram - [facility]. There are scattered areas of fibroglandular density in both breasts (category b / 25%-50% glandular t issue). No significant masses, calcifications, or other findings are seen in either breast. There has been no significant interval change. IMPRESSION: NEGATIVE There is no mammographic evidence of malignancy. A 1 year screening mammogram is recommended. Based on the Tyrer Cuzick model (a risk assessment model) the patients lifetime risk is 4.7% and her 10 year risk is 2.5%. According to the ACR, ACS, and NCCN guidelines, an annual breast MRI exam geoffrey g with mammogram is recommended if the patients lifetime risk is 20% or greater. This exam was interpreted at Station ID: [id number]. NOTE: For mammograms, a report in lay terms will be sent to the patient. Approximately 15% of breast malignancies will not be visualized mammographically. In the management of a palpable breast mass, a negative mammogram must not discourage biopsy of a clinically suspicious lesion. Electronically Signed By: Moustapha fernando/burke:07/29/2022 15:30:36 ACR BI-RADS Category 1: Negative 3341F PARENCHYMAL PATTERN: (A) - The breast(s) demonstrate(s) scattered fibroglandular densities. BI-RADS CATEGORY: (1) - 1 RECOMMENDATION: (ANNUAL) - Recommend routine annual screening mammography. [id number] 1 year screening LATERALITY: (B)
== END 2022-07-29 13:10 | disposition home or self-care (01) ==
LOC: DI 13:09
DX: Z12.31 Encounter for screening mammogram for malignant neoplasm of breast (principal)

== ENCOUNTER 2022-08-14 13:03 | Emergency (ER) | payer MEDICARE ==
[2022-08-14 13:09] VITALS: BP 149/91
--- NOTE | 2022-08-14 14:02 | XRAY Report ---
PROCEDURE: Hand 3 View RT INDICATIONS: Trauma TECHNIQUE: 3 views of the hand(s) acquired. COMPARISON: None FINDINGS: Bones: Acute comminuted minimally displaced fracture of the fifth digit proximal phalanx. No definite involvement of the proximal or distal articular surface identified. Soft tissues: No suspicious soft tissue calcifications. IMPRESSION: Acute comminuted minimally displaced fracture of the fifth digit proximal phalanx. Reviewed by: Moustapha Becerra MD on 08/14/2022 2:00 PM PDT Approved by: Moustapha Becerra MD on 08/14/2022 2:00 PM PDT Station ID: [id number]
--- NOTE | 2022-08-14 14:40 | ED Physician Documentation ---
PD HPI UPPER EXT INJURY - Stated complaint Stated Complaint: R HAND INJ - Chief complaint Chief Complaint: Trauma Ext - History obtained from History obtained from: Patient - History of Present Illness Location: Right, Hand, Finger Type of injury: Fall Where injury occurred: Home Timing - onset: Last night (slipped getting toward bed in dark and fell onto outstretched ahnd, with bending of little finger as fell.) Timing - details: Abrupt onset, Still present Worsened by: Moving, Palpating Associated symptoms: Swelling. No: Weakness, Numbness Similar symptoms before: Has not had sx before Review of Systems Skin: denies: Abrasion (s), Laceration (s) Musculoskeletal: denies: Neck pain, Back pain Neurologic: denies: Focal weakness, Numbness, Altered mental status, Head injury PD PAST MEDICAL HISTORY - Past Medical History Cardiovascular: None Respiratory: None Neuro: None Endocrine/Autoimmune: None GI: None ICT SECURITY SPECIALIST: None : None HEENT: None Psych: None Musculoskeletal: None Derm: None - Past Surgical History Past Surgical History: Yes General: Cholecystectomy /ICT SECURITY SPECIALIST: section, Breast reduction, Other HEENT: Tonsil/Adenoidectomy - Present Medications Home Medications: Ambulatory Orders Medication Instructions Recorded Confirmed Doxycycline Hyclate 100 mg PO BID #14 capsule 01/24/19 Mupirocin 1 applic TP TID #15 g 01/24/19 Ciprofloxacin [Cipro] 250 mg PO Q12H #6 tablet 04/09/19 Amox/Clav 875/125 [Augmentin] 1 each PO Q12H #14 tablet 04/11/19 Hydrocodone/Acetaminophen 1 - 2 each PO Q6H PRN #14 tablet 04/11/19 [Hydrocodon-Acetaminophen 5-325] Phenazopyridine HCl [Pyridium] 200 mg PO TID PRN #6 tablet 04/11/19 - Allergies Allergies/Adverse Reactions: Allergies Allergy/AdvReac Type Severity Reaction Status Date / Time bupropion [From Wellbutrin] Allergy Unknown Verified 08/14/22 13:09 Sulfa (Sulfonamide Allergy Unknown Verified 08/14/22 13:09 Antibiotics) - Social History Does the pt smoke?: No Smoking Status: Never smoker Does the pt drink ETOH?: Yes Does the pt have substance abuse?: No - Immunizations Immunizations are current?: Yes - POLST Patient has POLST: No PD ED PE NORMAL - Vitals Vital signs reviewed: Yes - General General: Alert and oriented X 3, No acute distress, Well developed/nourished - HEENT HEENT: Atraumatic - Neck Neck: Supple, no meningeal sign, No bony TTP - Derm Derm: Normal color, Warm and dry - Extremities Extremities: Other (right hand with tenderness at 5th MC without deformity. Tender with swelling and some early bruising at proximal phalanx. Normal cap ref ill and color at tip of finger. ) - Neuro Neuro: Alert and oriented X 3, No motor deficit, Normal speech Results - Vitals Vitals: Vital Signs - 24 hr 08/14/22 13:06 Temperature 36.4 C L Heart Rate 80 Respiratory 14 Rate Blood Pressure 149/91 H O2 Saturation 99 Oxygen O2 Source Room air - Rads (name of study) right hand Radiology: Prelim report reviewed (nondisplaced, nonangulated oblique fracture little finger proximal phalanx shaft. ), See rad report Procedures - Splint (location) right finger/hand Splint applied by: Physician Type of splint: Prefab velcro wrist (ulnar gutter configuration of velcro wrist splint.) Other: Patient tolerated well, No complications, Neurovascular intact PD MEDICAL DECISION MAKING - ED course Complexity details: reviewed results, considered differential, d/w patient Departure - Departure Disposition: 01 Home, Self Care Clinical Impression: Accidental fall Qualifiers: Encounter type: initial encounter Qualified Code(s): W19.XXXA - Unspecified fall, initial encounter Proximal phalanx fracture of finger Qualifiers: Encounter type: initial encounter Finger: little finger Fracture type: closed Fracture alignment: nondisplaced Laterality: right Qualified Code(s): S62.646A - Nondisplaced fracture of proximal phalanx of right little finger, initial encounter for closed fracture Condition: Stable Record reviewed to determine appropriate education?: Yes Instructions: ED Fx Finger Closed Follow-Up: REN SANCHEZ PA-C [Primary Care Provider] - [facility] [Provider Group] Comments: You do have a broken finger bone on the little finger. It is nondisplaced. We should be able to treat it with splint to protect it and keep it from moving. Since you have some pain in the hand as well, we can use a splint that incorporates the side of the hand as well as the little and ring finger. Keep the splint on consistently for the next 3 to 4 weeks to allow healing of the finger. It could potentially be changed to a just a metal finger splint as your healing up more to be less cumbersome Than the splint we are starting with. Use ibuprofen 400 to 600 mg 3 times daily with food for the next several days to week. To that add Tylenol every 4-6 hours if needed for pain. It should hurt quite a bit less with the splint in place. Ice elevate and rest the hand often today and tomorrow to help reduce swelling. Follow-up with your primary care or orthopedics in about a week to week and a half to reassess the fracture and make sure it staying in place as it is healing. Call for an appointment. Discharge Date/Time: 08/14/22 15:14
[2022-08-14] MEDS ORDERED: ACETAMINOPHEN 325 MG TABLET PO STA (14:51)
[2022-08-14] MEDS ORDERED: IBUPROFEN 600 MG TABLET PO STA (14:51)
== END 2022-08-14 15:14 | disposition home or self-care (01) ==
LOC: ED 13:03
DX: S62.646A Nondisplaced fracture of proximal phalanx of right little finger, initial encounter for closed fracture (principal); W01.0XXA Fall on same level from slipping, tripping and stumbling without subsequent striking against object, initial encounter; Y93.E8 Activity, other personal hygiene; Y92.003 Bedroom of unspecified non-institutional (private) residence as the place of occurrence of the external cause
CPT/HCPCS: 29130; 73130; 99283; A9270

== ENCOUNTER 2022-08-20 08:00 | Outpatient (CLI) | payer MEDICARE ==
--- NOTE | 2022-08-20 17:15 | XRAY Report ---
PROCEDURE: Finger(s) RT INDICATIONS: RIGHT 5TH FINGER PAIN TECHNIQUE: AP hand, 2 views of the fifth finger(s) acquired. COMPARISON: 08/14/2022 FINDINGS: Bones: Again noted is comminuted and minimally displaced fracture involving mid fifth proximal phalan geal shaft. Finger alignment is anatomic. No new fracture or dislocation. No suspicious bony lesions . Soft tissues: No suspicious soft tissue calcifications. IMPRESSION: Comminuted and minimally displaced mid fifth proximal phalangeal shaft fracture with stable fifth dig it alignment. No new fracture or dislocation. Reviewed by: Len Gorman MD on 08/20/2022 5:13 PM PDT Approved by: Len Gorman MD on 08/20/2022 5:13 PM PDT Station ID: [id number]
== END 2022-08-20 23:59 | disposition home or self-care (01) ==
LOC: DI.WOS 08:00
PROVIDERS: ATTEND Orthopaedic Surgery
DX: S62.616D Displaced fracture of proximal phalanx of right little finger, subsequent encounter for fracture with routine healing (principal)

== ENCOUNTER 2022-09-10 15:49 | Outpatient (CLI) | payer MEDICARE ==
--- NOTE | 2022-09-10 15:03 | XRAY Report ---
PROCEDURE: Finger(s) RT INDICATIONS: RIGHT 5TH FINGER FRACTURE TECHNIQUE: AP hand, 3 views of the fifth finger(s) acquired. COMPARISON: X-ray finger 08/14/2022 FINDINGS: Bones: Stable alignment of comminuted mid fifth proximal phalanx fracture. No intra-articular extensi on. No definitive bridging osteophyte formation. No suspicious bony lesions. Soft tissues: No suspicious soft tissue calcifications. IMPRESSION: Stable alignment of comminuted fifth proximal phalanx fracture. Reviewed by: Jeimy Hernandez MD on 09/10/2022 3:01 PM PST Approved by: Jeimy Hernandez MD on 09/10/2022 3:01 PM [facility] Station ID: [id number]
== END 2022-09-10 15:50 | disposition home or self-care (01) ==
LOC: DI.WOS 15:49
PROVIDERS: ATTEND Orthopaedic Surgery
DX: S62.616D Displaced fracture of proximal phalanx of right little finger, subsequent encounter for fracture with routine healing (principal)

== ENCOUNTER 2022-10-08 14:43 | Outpatient (CLI) | payer MEDICARE ==
--- NOTE | 2022-10-08 21:47 | XRAY Report ---
PROCEDURE: Finger(s) RT INDICATIONS: RIGHT 5TH FINGER FRACTURE TECHNIQUE: AP hand, 2 views of the fifth finger(s) acquired. COMPARISON: 09/10/2022, 08/20/2022 and 08/14/2022 FINDINGS: Bones: There is interval further healing of fifth proximal phalangeal shaft fracture site. No new fra cture or dislocation. No suspicious bony lesions. Soft tissues: No suspicious soft tissue calcifications. Mild soft tissue swelling surrounding fifth proximal phalanx is seen. IMPRESSION: Interval further healing at fifth proximal phalangeal shaft fracture site. No new fracture or disloca tion. Mild surrounding soft tissue swelling. Reviewed by: Len Mathew MD on 10/08/2022 9:45 PM PST Approved by: Len Mathew MD on 10/08/2022 9:45 PM PST Station ID: [id number]
== END 2022-10-08 14:44 | disposition home or self-care (01) ==
LOC: DI.WOS 14:43
PROVIDERS: ATTEND Orthopaedic Surgery
DX: S62.616D Displaced fracture of proximal phalanx of right little finger, subsequent encounter for fracture with routine healing (principal)

== ENCOUNTER 2022-11-13 10:45 | Outpatient (CLI) | payer MEDICARE ==
--- NOTE | 2022-11-13 16:57 | CT Report ---
PROCEDURE: HEAD WO INDICATIONS: HEADACHE TECHNIQUE: Noncontrast 4.5 mm thick angled axial sections acquired from the foramen magnum to the vertex. For r adiation dose reduction, the following was used: automated exposure control, adjustment of mA and/or kV according to patient size. COMPARISON: None. FINDINGS: Image quality: There is streak artifact seen through the skull base. CSF spaces: Basal cisterns are patent. No extra-axial fluid collections. Ventricles are normal in size and shape. Brain: No midline shift. No intracranial masses or hemorrhage. Estrada-white matter interface is norm al. Age-appropriate brain parenchymal volume loss and chronic small vessel ischemic change can be se en. There is a focal volume loss involving the left BOILER HOUSE SUPERVISOR territory. Skull and face: Calvarium and visualized facial bones are intact, without suspicious lesions. Sinuses: Visualized sinuses and mastoids are clear. IMPRESSION: A cause of headache cannot be seen on these images. Remote left BOILER HOUSE SUPERVISOR territory infarction noted. Reviewed by: Hilario Bell MD on 11/13/2022 3:53 PM AKST Approved by: Hilario Bell MD on 11/13/2022 3:53 PM AKST Station ID: [id number]
== END 2022-11-13 10:46 | disposition home or self-care (01) ==
LOC: DI 10:45
PROVIDERS: ATTEND Physician Assistant
DX: R51.9 Headache, unspecified (principal); Z86.73 Personal history of transient ischemic attack (TIA), and cerebral infarction without residual deficits

== ENCOUNTER 2023-04-01 14:18 | Outpatient (CLI) | payer MEDICARE ==
--- NOTE | 2023-04-01 17:19 | DEXA Report ---
PROCEDURE: Dexa Spine and/or Hip INDICATIONS: POSTMENOPAUSAL TECHNIQUE: Dual energy x-ray absorptiometry (DXA) was performed on a [employer] System. Regions measur ed are the AP Spine, femoral neck, and if needed forearm. COMPARISON: 12/26/2020 FINDINGS: Lumbar Spine: Bone Mineral Density 1.497 g/cm/cm,T score 2.6. Normal bone density Left Femoral Neck: Bone Mineral Density 0.912 g/cm/cm, T score -0.9. Normal bone density Left Hip: Bone Mineral Density 1.051 g/cm/cm,T score 0.3. Normal bone density (T score greater or equal to -1.0: NORMAL) (T score from -1.1 to -2.4: OSTEOPENIA) (T score less than or equal to -2.5 to: OSTEOPOROSIS) Impression: By WHO criteria, this patient has normal bone mineral density. Patients with diagnosis of osteoporosis or osteopenia should have regular bone mineral density assess ment. For those eligible for Medicare, routine testing is allowed once every 2 years. Testing frequ ency can be increased for patients who have rapidly progressing disease or for those who are receivin g medical therapy to restore bone mass. Reviewed by: Josef Rainey MD on 04/01/2023 5:18 PM PDT Approved by: Josef Rainey MD on 04/01/2023 5:18 PM PDT Station ID: [id number]
== END 2023-04-01 14:19 | disposition home or self-care (01) ==
LOC: DI 14:18
PROVIDERS: ATTEND Physician Assistant
DX: Z78.0 Asymptomatic menopausal state (principal); E11.9 Type 2 diabetes mellitus without complications; E78.5 Hyperlipidemia, unspecified; F31.9 Bipolar disorder, unspecified; E03.9 Hypothyroidism, unspecified
CPT/HCPCS: 36415; 80053; 80061; 80178; 82043; 82570; 83036; 83721; 84439; 84443; 85025

== ENCOUNTER 2023-04-01 14:46 | Outpatient (CLI) | payer MEDICARE ==
[2023-04-01 15:07] LABS: BASOPHILS % (AUTO) 0.4 %; EOSINOPHILS # (AUTO) 0.2 10^3/uL (0.0-0.7); EOSINOPHILS % (AUTO) 2.6 %; HCT - HEMATOCRIT 40.6 % (37.0-47.0); HGB - HEMOGLOBIN 13.4 g/dL (12.0-16.0); LYMPHOCYTES # (AUTO) 1.9 10^3/uL (1.5-3.5); LYMPHOCYTES % (AUTO) 24.8 %; MEAN CORPUSCULAR HEMOGLOBIN 32.4 pg (27.0-31.0); MEAN CORPUSCULAR VOLUME 98.3 fL (81.0-99.0); MEAN PLATELET VOLUME 9.6 fL (7.9-10.8); MONOCYTES # (AUTO) 0.5 10^3/uL (0.0-1.0); MONOCYTES % (AUTO) 5.9 %; NEUTROPHILS % (AUTO) 66.2 %; PLT - PLATELET COUNT 298 10^3/uL (130-450); RED BLOOD COUNT 4.13 10^6/uL (4.20-5.40); RED CELL DISTRIBUTION WIDTH 12.3 % (12.0-15.0); WHITE BLOOD COUNT 7.6 x10^3/uL (4.8-10.8)
[2023-04-01 15:28] LABS: CREATININE,URINE 37.5 mg/dL; MICROALBUM/CREATININE RATIO,UR 5.3 ug/mg (<30.0); MICROALBUMIN,URINE 0.2 mg/dL (0-300.0)
[2023-04-01 15:30] LABS: LITHIUM 0.42 mmol/L
[2023-04-01 15:31] LABS: ALBUMIN 4.2 g/dL (3.2-5.5); ALBUMIN/GLOBULIN RATIO 1.4 (1.0-2.2); ALKALINE PHOSPHATASE 67 IU/L (42-121); ALT ALANINE AMINOTRANSFERASE 21 IU/L (10-60); AST ASPARTATE AMINOTRANSFERASE 24 IU/L (10-42); BILIRUBIN,TOTAL 0.7 mg/dL (0.2-1.0); BUN - BLOOD UREA NITROGEN 17 mg/dL (6-20); CALCIUM 9.5 mg/dL (8.5-10.3); CARBON DIOXIDE - CO2 27 mmol/L (21-32); CHLORIDE 106 mmol/L (101-111); CHOL/HDL RATIO 5.3 (<4.4); CHOLESTEROL 218 mg/dL; GFR - MDRD 55 (>89); GLUCOSE 105 mg/dL (70-100); HDL CHOLESTEROL 41 mg/dL; LDL CHOLESTEROL,CALCULATED 135 mg/dL; LDL/HDL RATIO 3.3 (<4.4); POTASSIUM 4.8 mmol/L (3.5-5.0); SODIUM 138 mmol/L (135-145); TOTAL PROTEIN 7.3 g/dL (6.7-8.2); TRIGLYCERIDES 208 mg/dL; VLDL CHOLESTEROL 42 mg/dL
[2023-04-01 15:44] LABS: THYROID STIMULATING HORMONE 0.39 uIU/mL (0.34-5.60)
[2023-04-01 15:46] LABS: FREE T4 (FREE THYROXINE) 0.95 ng/dL (0.58-1.64)
[2023-04-01 20:13] LABS: ESTIMATED AVERAGE GLUCOSE 108 mg/dL (70-100); HEMOGLOBIN A1c% 5.4 % (4.27-6.07)
== END 2023-04-01 14:47 | disposition home or self-care (01) ==
LOC: LAB 14:46
PROVIDERS: ATTEND Physician Assistant
DX: E11.9 Type 2 diabetes mellitus without complications (principal); E78.5 Hyperlipidemia, unspecified; F31.9 Bipolar disorder, unspecified; E03.9 Hypothyroidism, unspecified
CPT/HCPCS: 36415; 80053; 80061; 80178; 82043; 82570; 83036; 83721; 84439; 84443; 85025

== ENCOUNTER 2024-01-09 09:55 | Outpatient (CLI) | payer MEDICARE ==
[2024-01-09 10:30] LABS: CALCIUM 10.3 mg/dL (8.5-10.3); POTASSIUM 4.2 mmol/L (3.5-4.5)
[2024-01-09 13:34] LABS: ESTIMATED AVERAGE GLUCOSE 108 mg/dL (70-100); HEMOGLOBIN A1c% 5.4 % (4.27-6.07)
== END 2024-01-09 09:56 | disposition home or self-care (01) ==
LOC: LAB 09:55
PROVIDERS: ATTEND Physician Assistant
DX: E11.22 Type 2 diabetes mellitus with diabetic chronic kidney disease (principal); N18.31 Chronic kidney disease, stage 3a; Z79.899 Other long term (current) drug therapy
CPT/HCPCS: 36415; 80048; 80178; 83036

== ENCOUNTER 2024-06-01 08:45 | Outpatient (CLI) | payer MEDICARE ==
[2024-06-01 12:07] LABS: BASOPHILS % (AUTO) 0.5 %; EOSINOPHILS # (AUTO) 0.1 10^3/uL (0.0-0.7); EOSINOPHILS % (AUTO) 1.4 %; HCT - HEMATOCRIT 39.1 % (37.0-47.0); HGB - HEMOGLOBIN 12.7 g/dL (12.0-16.0); LYMPHOCYTES # (AUTO) 2.1 10^3/uL (1.5-3.5); LYMPHOCYTES % (AUTO) 31.5 %; MEAN CORPUSCULAR HGB CONC 32.5 g/dL (32.0-36.0); MEAN CORPUSCULAR VOLUME 98.5 fL (81.0-99.0); MEAN PLATELET VOLUME 9.3 fL (7.9-10.8); MONOCYTES # (AUTO) 0.4 10^3/uL (0.0-1.0); MONOCYTES % (AUTO) 6.4 %; NEUTROPHILS # (AUTO) 3.9 10^3/uL (1.5-6.6); NEUTROPHILS % (AUTO) 59.9 %; PLT - PLATELET COUNT 341 10^3/uL (130-450); RED BLOOD COUNT 3.97 10^6/uL (4.20-5.40); RED CELL DISTRIBUTION WIDTH 12.3 % (12.0-15.0); WHITE BLOOD COUNT 6.6 x10^3/uL (4.8-10.8)
[2024-06-01 12:23] LABS: CHOL/HDL RATIO 4.6 (<4.4); CHOLESTEROL 194 mg/dL; HDL CHOLESTEROL 42 mg/dL; LDL CHOLESTEROL,CALCULATED 119 mg/dL; LDL/HDL RATIO 2.8 (<4.4); TRIGLYCERIDES 165 mg/dL; VLDL CHOLESTEROL 33 mg/dL
[2024-06-01 12:24] LABS: LITHIUM 0.31 mmol/L
[2024-06-01 12:32] LABS: ALBUMIN 4.6 g/dL (3.2-5.5); BILIRUBIN,TOTAL 0.4 mg/dL (0.2-1.0); CALCIUM 10.3 mg/dL (8.5-10.3); POTASSIUM 4.1 mmol/L (3.5-4.5); TOTAL PROTEIN 6.9 g/dL (6.4-8.9)
[2024-06-01 12:38] LABS: ESTIMATED AVERAGE GLUCOSE 105 mg/dL (70-100); HEMOGLOBIN A1c% 5.3 % (4.27-6.07)
[2024-06-01 14:14] LABS: CREATININE,URINE 205.3 mg/dL; MICROALBUM/CREATININE RATIO,UR 16.1 ug/mg (<30.0); MICROALBUMIN,URINE 3.3 mg/dL
== END 2024-06-01 09:00 | disposition home or self-care (01) ==
LOC: LAB.N 08:45
PROVIDERS: ATTEND Family Medicine
DX: R10.13 Epigastric pain (principal); E11.9 Type 2 diabetes mellitus without complications; Z79.899 Other long term (current) drug therapy; F31.9 Bipolar disorder, unspecified; E03.9 Hypothyroidism, unspecified
CPT/HCPCS: 36415; 80053; 80061; 80178; 82043; 82570; 83036; 83690; 83721; 84439; 84443; 85025